=== PATIENT | male | born 1990 | race Caucasian/White ===

== ENCOUNTER 2018-02-07 07:11 | Emergency (ER) | payer SELFPAY ==
--- NOTE | 2018-02-07 10:35 | ER Document Report ---
ED General - General Chief Complaint: Cough Stated Complaint: COUGH/NECK AND BACK PAIN Time Seen by Provider: 02/07/18 09:58 Notes: Patient is a 27-year-old male presenting to the emergency room complaining of congestion for the last 3 weeks. stated he has had a cough for the last 3 days. Denies fever, nausea, vomiting, diarrhea, stated the last couple of days due to cough he has had pain in his neck and back every time he coughs. States the pain in his neck and back is only when he coughs otherwise denies pain. Denies any cervical tenderness. Does not have any decreased range of motion of neck. States he was taking Mucinex and Motrin [id number] for his symptoms stated he did not take anything this morning. Past medical history of hepatitis C Patient states he does not have insurance and has not seen a doctor since his diagnosis in 2014 Medications: None Allergies: None Surgeries: None Patient states he occasionally smokes cigarettes, occasionally partakes in EtOH , denies current drug use, stated he used to use IV drugs but quit 2 years ago TRAVEL OUTSIDE OF THE [place] IN LAST 30 DAYS: No - Related Data Allergies/Adverse Reactions: Bee Sting Kit *RETIRED-06/24/10 [Bee Sting Kit] Allergy (Verified 02/07/18 07:16 ) naproxen sodium [From Aleve] Allergy (Verified 02/07/18 07:16) acetaminophen [From Tylenol] Adverse Reaction (Mild, Verified 02/07/18 07:16) Past Medical History - Social History Smoking Status: Unknown if Ever Smoked Family History: None Patient has suicidal ideation: No Patient has homicidal ideation: No Renal/ Medical History: Denies: Hx Peritoneal Dialysis Psychiatric Medical History: Reports: Hx Attention Deficit Hyperactivity Disorder - Immunizations Hx Diphtheria, Pertussis, Tetanus Vaccination: No Physical Exam - Vital signs Vitals: Temp Pulse Resp BP Pulse Ox 97.5 F 71 18 131/79 H 99 02/07/18 07:31 02/07/18 07:31 02/07/18 07:31 02/07/18 07:31 02/07/18 07:31 - Notes Notes: GENERAL: Alert, interacts well. No acute distress. HEAD: Normocephalic, atraumatic. EYES: Pupils equal, round, and reactive to light. Extraocular movements intact. ENT: Oral mucosa moist, tongue midline. Nares patent, no nasal septal hematoma, TM's intact WNL. +frontal sinus tenderness NECK: Full range of motion. Supple. Trachea midline. LUNGS: Clear to auscultation bilaterally, no wheezes, rales, or rhonchi. No respiratory distress. HEART: Regular rate and rhythm. No murmur ABDOMEN: Soft, non-tender. Non-distended. Bowel sounds present in all 4 quadrants. EXTREMITIES: Moves all 4 extremities spontaneously. No edema, normal radial and dorsalis pedis pulses bilaterally. No cyanosis. BACK: no cervical, thoracic, lumbar midline tenderness. No saddle anesthesia, normal distal neurovascular exam. NEUROLOGICAL: Alert and oriented x3. Normal speech. [cranial nerves II through XII grossly intact]. PSYCH: Normal affect, normal mood. SKIN: Warm, dry, normal turgor. No rashes or lesions noted. Course - Re-evaluation Re-evalutation: Discussed case with Dr. Ellis who recommended a CMP to look at LFTs. Labs in the computer system were from 2012. Pt. agreed for labs. CMP resulted with normal LFT. Will treat for sinusitis. Return precautions given. - Vital Signs Vital signs: Temp Pulse Resp BP Pulse Ox 98.1 F 59 L 18 122/80 99 02/07/18 11:41 02/07/18 11:41 02/07/18 11:41 02/07/18 11:41 02/07/18 11:41 - Laboratory Result Diagrams: 02/07/18 10:35 Laboratory results interpreted by me: 02/07/18 10:35 Potassium 5.4 H Discharge - Discharge Clinical Impression: Sinusitis Qualifiers: Sinusitis location: frontal Chronicity: acute Recurrence: non-recurrent Qualified Code(s): J01.10 - Acute frontal sinusitis, unspecified Condition: Stable Disposition: HOME, SELF-CARE Additional Instructions: Sinusitis You have sinusitis, an infection of the sinus cavities of the face. The sinuses are air-filled chambers which open into the inside of the nose. Bacteria and pus fill a sinus, causing pain, drainage, and fever. Sinusitis is treated with antibiotics. Often, expectorants (to thin the sinus mucous) or decongestants (to reduce swelling) are prescribed as well. Healing requires seven to 10 days. Avoid chemical fumes, pollens, dusts, and smoke (especially cigarette smoke ). Keep the air humidified in your bedroom and work area and take plenty of liquids by mouth. This condition can be serious if the infection spreads. If your symptoms worsen, or if you develop severe headache, high fever, stiff neck, or a rash, you must call the doctor or return for re-evaluation. Prescriptions: Amox Tr/Potassium Clavulanate [Augmentin 875-125 Tablet] 1 tab PO BID 10 Days tablet
[2018-02-07 11:14] LABS: ALANINE AMINOTRANSFERASE 71 U/L (21-72); ALBUMIN 4.4 g/dL (3.5-5.0); ALKALINE PHOSPHATASE 57 U/L (38-126); ANION GAP 7 (5-19); ASPARTATE AMINO TRANSFERASE 53 U/L (17-59); BILIRUBIN,DIRECT 0.2 mg/dL (0.0-0.4); BILIRUBIN,TOTAL 0.4 mg/dL (0.2-1.3); BLOOD UREA NITROGEN 20 mg/dL (7-20); CARBON DIOXIDE 27 mmol/L (22-30); CHLORIDE 105 mmol/L (98-107); GLUCOSE 85 mg/dL (75-110); POTASSIUM 5.4 mmol/L (3.6-5.0); SODIUM 139.4 mmol/L (137-145); TOTAL PROTEIN 7.2 g/dL (6.3-8.2)
[2018-02-07 11:42] VITALS: BP 122/80
== END 2018-02-07 11:41 | disposition home or self-care (01) ==
LOC: ER 07:11
DX: J01.10 Acute frontal sinusitis, unspecified (principal); R05 Cough; M54.2 Cervicalgia; M54.9 Dorsalgia, unspecified; F17.210 Nicotine dependence, cigarettes, uncomplicated
CPT/HCPCS: 36415; 80053; 99283

== ENCOUNTER → 2019-11-20 | Outpatient (CLI) | payer SELFPAY | LOC: OD 12:45 | PROVIDERS: ATTEND Otolaryngology | DX: J30.9 Allergic rhinitis, unspecified (principal) | CPT/HCPCS: 36415; 82785; 86003 ==

== ENCOUNTER → 2020-05-26 | Outpatient (CLI) | payer BC ==
--- NOTE | 2020-05-26 09:44 | RADIOLOGY REPORT (SQ) ---
EXAM DESCRIPTION: MRI IAC WWO IMAGES COMPLETED DATE/TIME: 05/26/2020 9:21 am REASON FOR STUDY: HEARING LOSS H90.5 UNSPECIFIED SENSORINEURAL HEARING LOSS COMPARISON: None. EXAM PARAMETERS: TECHNIQUE: Multiplanar imaging includes non-contrasted T1, T2, FLAIR, diffusion wit h ADC map and post gadolinium contrast sequences. Additional thin slice images acquired of the skull base. Images stored on PACS. LIMITATIONS: None. FINDINGS: ANATOMY: No anomalies. Normal vascular flow voids. Pituitary fossa normal. CSF SPACES: Normal in size and contour. CEREBRUM: Sulci and gyri normal in size and contour. Few punctate foci of T2 prolongation on FLAIR i maging are nonspecific and of doubtful clinical significance. No hemorrhage. No edema, masses or mas s effect. POSTERIOR FOSSA: No signal alteration. No hemorrhage. No edema, masses or mass effect. Internal mercedes tory canals, cerebello-pontine angles, mastoids normal. Detailed imaging of the 5th, 7th, and 8th ner ves and [place] within normal limits. DIFFUSION IMAGING: Negative for acute or sub-acute infarction. ORBITS: No masses. Globes normal. PARANASAL SINUSES: No fluid levels. Mucosa normal. OTHER: No other significant finding. IMPRESSION: NORMAL MRI OF THE BRAIN AND INTERNAL AUDITORY CANALS. TECHNICAL DOCUMENTATION: JOB ID: [id number] 2010 [employer]- All Rights Reserved Reading location - IP/workstation name: [email or web address]
== END ==
LOC: RAD 08:19
PROVIDERS: ATTEND Otolaryngology
DX: H90.5 Unspecified sensorineural hearing loss (principal)
CPT/HCPCS: 70553